=== PATIENT | male | born 1940 | race African-American/Black ===

== ENCOUNTER 2021-07-14 07:24 | Inpatient (IN) | payer OTHER ==
[~2021-07-14] VITALS: Ht 177.8 cm; Wt 76.7 kg
[2021-07-14 08:26] LABS: BASOPHILS % 0.7 % (0.0-2.0); HEMATOCRIT. 38.6 % (42.0-52.0); HEMOGLOBIN. 13.1 g/dL (14.0-18.0); LYMPHOCYTES % 18.3 % (20.0-50.0); MEAN CORPUSCULAR HEMOGLOBIN 30.1 pg (28.0-32.0); MEAN CORPUSCULAR VOLUME 89.2 fL (80.0-94.0); MEAN PLATELET VOLUME 7.4 fl (7.4-10.4); MONOCYTES % 11.1 % (2.0-8.0); NEUTROPHILS % 67.9 % (40.0-76.0); PLATELET 247 x1000/uL (130-400); RED BLOOD CELL COUNT 4.33 mill/uL (4.7-6.1); RED CELL DISTRIBUTION WIDTH 13.4 % (11.6-14.6)
[2021-07-14 08:33] LABS: CHLORIDE 107 mEq/L (98-107)
[2021-07-14 08:59] LABS: INR 1.1; PROTHROMBIN TIME 11.7 sec (9.6-11.0)
[2021-07-14] MEDS ORDERED: GADOTERATE MEGLUMINE 5 MMOL/10 ML VIAL IV ONE (15:19)
[2021-07-14] MEDS ORDERED: ONDANSETRON HCL 4MG/2ML INJ IV PRN (19:45)
[2021-07-14 20:30] VITALS: BP 170/106
[2021-07-14] MEDS ORDERED: MORPHINE SULFATE 2 MG/ML CPJ (NOT FOR IM USE) IV PRN (21:30)
[2021-07-14] MEDS ORDERED: NICARDIPINE 40MG/200ML PREMIX 200 ML IV PRN (21:30)
[2021-07-14] MEDS: LEVETIRACETAM 500MG PREMIX 100 ML IV SCH (22:00)
[2021-07-14] MEDS: SODIUM CHLORIDE 0.9% INJ 3ML FLUSH IVF SCH (22:00)
[2021-07-14] MEDS: DEXT 5%/LACTATED RINGERS 1,000 ML IV SCH (22:00)
[2021-07-14] MEDS ORDERED: NICARDIPINE 50 MG in SODIUM CHLORIDE 0.9% 250 ML IV PRN (22:30)
[2021-07-14] MEDS ORDERED: NALOXONE HCL 0.4 MG/ML 1ML VIAL IV PRN (23:45)
[2021-07-15] VITALS (65 sets, daily range): BP systolic 49–165; BP diastolic 31–116
[2021-07-15] MEDS: NICARDIPINE 100 MG in SODIUM CHLORIDE 0.9% 60 ML IV PRN ×2 (02:51→07:12)
[2021-07-15] MEDS: SODIUM CHLORIDE 0.9% INJ 3ML FLUSH IVF SCH ×3 (06:39→22:00)
[2021-07-15] MEDS ORDERED: GENTAMICIN SULF 40MG/ML 2ML VIAL ONE (07:14)
[2021-07-15] MEDS ORDERED: LIDOCAINE HCL/EPINEPHRINE 1%-EPI 1:100,000 20 ML VIAL ONE (07:14)
[2021-07-15] MEDS ORDERED: BACITRACIN 15GM TUBE TOP ONE (07:14)
[2021-07-15] MEDS ORDERED: THROMBIN (BOVINE) 5000 UNITS/VIAL TOP ONE (07:15)
[2021-07-15] MEDS ORDERED: FENTANYL CITRATE/PF 50MCG/ML 2ML VIAL ONE (08:05)
[2021-07-15] MEDS ORDERED: PROPOFOL 200MG/20ML VIAL IV ONE (08:06)
[2021-07-15] MEDS ORDERED: GLYCOPYRROLATE 0.2 MG/ML 2ML VIAL ONE (08:06)
[2021-07-15] MEDS ORDERED: ROCURONIUM BROMIDE 10MG/ML VIAL 5ML IV ONE (08:06)
[2021-07-15] MEDS ORDERED: MIDAZOLAM HCL 2 MG/2 ML VIAL ONE (08:06)
[2021-07-15] MEDS ORDERED: NEOSTIGMINE METHYLSULFATE 1MG/ML 10 ML VIAL ONE (08:06)
[2021-07-15] MEDS ORDERED: DEXAMETHASONE 4MG/ML 1ML VIAL ONE (08:22)
[2021-07-15] MEDS ORDERED: ONDANSETRON HCL 4MG/2ML INJ ONE (08:22)
[2021-07-15] MEDS: PANTOPRAZOLE SODIUM 40 MG/VIAL IV SCH (09:42)
[2021-07-15] MEDS: LEVETIRACETAM 500MG PREMIX 100 ML IV SCH ×2 (09:42→20:02)
[2021-07-15] MEDS: MORPHINE SULFATE 2 MG/ML CPJ (NOT FOR IM USE) IV PRN ×3 (10:19→23:08)
[2021-07-15] MEDS: CEFAZOLIN 1000MG PREMIX 50 ML IV SCH ×2 (13:41→21:21)
[2021-07-15] MEDS ORDERED: CEFAZOLIN SODIUM 1000MG/VIAL IV SCH (14:00)
[2021-07-15] MEDS: DEXT 5%/LACTATED RINGERS 1,000 ML IV SCH (14:54)
[2021-07-16] VITALS (97 sets, daily range): BP systolic 97–168; BP diastolic 33–118
[2021-07-16] MEDS: DEXT 5%/LACTATED RINGERS 1,000 ML IV SCH
[2021-07-16] MEDS: SODIUM CHLORIDE 0.9% INJ 3ML FLUSH IVF SCH ×3 (05:28→21:43)
[2021-07-16] MEDS: CEFAZOLIN 1000MG PREMIX 50 ML IV SCH ×3 (05:39→21:38)
[2021-07-16] MEDS: PANTOPRAZOLE SODIUM 40 MG/VIAL IV SCH (09:01)
[2021-07-16] MEDS: LEVETIRACETAM 500MG PREMIX 100 ML IV SCH ×2 (09:01→21:37)
[2021-07-16] MEDS: NICARDIPINE 100 MG in SODIUM CHLORIDE 0.9% 60 ML IV PRN (09:06)
[2021-07-16] MEDS: MORPHINE SULFATE 2 MG/ML CPJ (NOT FOR IM USE) IV PRN (09:18)
[2021-07-16] MEDS ORDERED: HYDRALAZINE 20MG/ML VIAL IV PRN (11:30)
[2021-07-16] MEDS ORDERED: BACITRACIN ZINC OINT UDPKT TOP NR (15:30)
[2021-07-16] MEDS: AMLODIPINE 5MG TABLET PO SCH (21:00)
[2021-07-17] VITALS (97 sets, daily range): BP systolic 98–145; BP diastolic 46–89
[2021-07-17] MEDS: NICARDIPINE 100 MG in SODIUM CHLORIDE 0.9% 60 ML IV PRN (04:49)
[2021-07-17] MEDS: CEFAZOLIN 1000MG PREMIX 50 ML IV SCH (06:10)
[2021-07-17] MEDS: SODIUM CHLORIDE 0.9% INJ 3ML FLUSH IVF SCH ×3 (06:10→22:05)
[2021-07-17 06:15] LABS: BASOPHILS % 0.2 % (0.0-2.0); HEMATOCRIT. 38.2 % (42.0-52.0); HEMOGLOBIN. 13.3 g/dL (14.0-18.0); LYMPHOCYTES % 8.3 % (20.0-50.0); MEAN CORPUSCULAR HEMOGLOBIN 30.7 pg (28.0-32.0); MEAN CORPUSCULAR VOLUME 88.1 fL (80.0-94.0); MEAN PLATELET VOLUME 7.2 fl (7.4-10.4); MONOCYTES % 10.6 % (2.0-8.0); NEUTROPHILS % 80.9 % (40.0-76.0); PLATELET 249 x1000/uL (130-400); RED BLOOD CELL COUNT 4.34 mill/uL (4.7-6.1); RED CELL DISTRIBUTION WIDTH 13.7 % (11.6-14.6)
[2021-07-17 06:38] LABS: CHLORIDE 110 mEq/L (98-107)
[2021-07-17] MEDS: AMLODIPINE 5MG TABLET PO SCH ×2 (09:00→22:05)
[2021-07-17] MEDS: PANTOPRAZOLE SODIUM 40 MG/VIAL IV SCH (09:13)
[2021-07-17] MEDS: LEVETIRACETAM 500MG PREMIX 100 ML IV SCH ×2 (09:13→22:05)
[2021-07-17] MEDS ORDERED: ASPI-1497 MT (12:14)
[2021-07-17] MEDS ORDERED: CARB-299 PO (12:14)
[2021-07-17] MEDS ORDERED: CRES10 MT (12:14)
[2021-07-17] MEDS ORDERED: CLOP-31 PO (12:14)
[2021-07-17] MEDS ORDERED: AMLO5TAB88 PO (12:14)
[2021-07-17] MEDS ORDERED: POTASSIUM CHLORIDE INJ 40 MEQ in DEXT 5% WATER 250 ML IV ONE (12:15)
[2021-07-17] MEDS: DEXT 5%/LACTATED RINGERS 1,000 ML IV SCH ×3 (13:53→16:40)
[2021-07-17] MEDS: KCL 20MEQ/100ML PREMIX 100 ML IV SCH ×2 (13:53→19:16)
[2021-07-17] MEDS ORDERED: BACITRACIN 15GM TUBE TOP NR (15:30)
[2021-07-18] VITALS (96 sets, daily range): BP systolic 70–174; BP diastolic 43–150
[2021-07-18] MEDS: SODIUM CHLORIDE 0.9% INJ 3ML FLUSH IVF SCH ×3 (05:22→20:41)
[2021-07-18] MEDS: DEXT 5%/LACTATED RINGERS 1,000 ML IV SCH (06:00)
[2021-07-18 06:13] LABS: BASOPHILS % 0.2 % (0.0-2.0); EOSINOPHILS % 0.6 % (0.0-5.0); HEMATOCRIT. 35.9 % (42.0-52.0); HEMOGLOBIN. 12.4 g/dL (14.0-18.0); LYMPHOCYTES % 13.9 % (20.0-50.0); MEAN CORPUSCULAR HEMOGLOBIN 30.6 pg (28.0-32.0); MEAN CORPUSCULAR VOLUME 88.7 fL (80.0-94.0); MEAN PLATELET VOLUME 7.3 fl (7.4-10.4); MONOCYTES % 11.8 % (2.0-8.0); NEUTROPHILS % 73.5 % (40.0-76.0); PLATELET 236 x1000/uL (130-400); RED BLOOD CELL COUNT 4.05 mill/uL (4.7-6.1); RED CELL DISTRIBUTION WIDTH 13.7 % (11.6-14.6)
[2021-07-18 06:17] LABS: CHLORIDE 112 mEq/L (98-107)
[2021-07-18] MEDS: PANTOPRAZOLE SODIUM 40 MG/VIAL IV SCH (08:23)
[2021-07-18] MEDS: LEVETIRACETAM 500MG PREMIX 100 ML IV SCH ×2 (08:23→20:41)
[2021-07-18] MEDS: AMLODIPINE 5MG TABLET PO SCH ×2 (08:23→20:41)
[2021-07-18] MEDS: ACETAMINOPHEN 650MG/20.3ML UDC PO PRN (23:23)
[2021-07-18] MEDS ORDERED: NALOXONE HCL 0.4MG/ML VIAL IV PRN (23:30)
[2021-07-19] VITALS (30 sets, daily range): BP systolic 97–135; BP diastolic 51–84
[2021-07-19] MEDS: DEXT 5%/LACTATED RINGERS 1,000 ML IV SCH (00:30)
[2021-07-19] MEDS: SODIUM CHLORIDE 0.9% INJ 3ML FLUSH IVF SCH ×3 (06:50→22:00)
[2021-07-19] MEDS: PANTOPRAZOLE SODIUM 40 MG/VIAL IV SCH (08:17)
[2021-07-19] MEDS: AMLODIPINE 5MG TABLET PO SCH ×2 (08:17→20:10)
[2021-07-19] MEDS: LEVETIRACETAM 500MG PREMIX 100 ML IV SCH ×2 (08:18→20:08)
[2021-07-19] MEDS ORDERED: HYDRALAZINE 5 MG in SODIUM CHLORIDE 0.9% 49.5 ML IV PRN (10:00)
[2021-07-19] MEDS: ACETAMINOPHEN 650MG/20.3ML UDC PO PRN (16:33)
[2021-07-20] VITALS: BP 141/73
[2021-07-20 04:00] VITALS: BP 136/77
[2021-07-20] MEDS: SODIUM CHLORIDE 0.9% INJ 3ML FLUSH IVF SCH ×3 (06:19→21:08)
[2021-07-20 08:00] VITALS: BP 98/74
[2021-07-20] MEDS: LEVETIRACETAM 500MG PREMIX 100 ML IV SCH ×2 (09:00→21:08)
[2021-07-20] MEDS: AMLODIPINE 5MG TABLET PO SCH ×2 (09:00→21:07)
[2021-07-20] MEDS: PANTOPRAZOLE SODIUM 40 MG/VIAL IV SCH (09:53)
[2021-07-20 12:00] VITALS: BP 116/77
[2021-07-20 16:00] VITALS: BP 124/88
[2021-07-20 20:00] VITALS: BP 113/78
[2021-07-21] VITALS: BP 121/62
[2021-07-21 04:00] VITALS: BP 122/72
[2021-07-21] MEDS: SODIUM CHLORIDE 0.9% INJ 3ML FLUSH IVF SCH ×3 (05:44→21:19)
[2021-07-21 08:00] VITALS: BP 131/62
[2021-07-21] MEDS: LEVETIRACETAM 500MG PREMIX 100 ML IV SCH ×2 (09:56→21:18)
[2021-07-21] MEDS: PANTOPRAZOLE SODIUM 40 MG/VIAL IV SCH (09:56)
[2021-07-21] MEDS: AMLODIPINE 5MG TABLET PO SCH ×2 (09:56→21:26)
[2021-07-21 12:00] VITALS: BP 133/68
[2021-07-21 16:00] VITALS: BP 121/77
[2021-07-21 20:00] VITALS: BP 132/73
[2021-07-22] VITALS (20 sets, daily range): BP systolic 101–145; BP diastolic 49–88
[2021-07-22] MEDS: SODIUM CHLORIDE 0.9% INJ 3ML FLUSH IVF SCH ×3 (06:12→21:09)
[2021-07-22] MEDS: PANTOPRAZOLE SODIUM 40 MG/VIAL IV SCH (09:49)
[2021-07-22] MEDS: LEVETIRACETAM 500MG PREMIX 100 ML IV SCH ×2 (09:49→21:03)
[2021-07-22] MEDS: AMLODIPINE 5MG TABLET PO SCH ×2 (09:50→21:09)
[2021-07-22] MEDS ORDERED: MANNITOL 12.5G (25%) VIAL 50ML IV ONE (18:45)
[2021-07-22] MEDS ORDERED: MANNITOL 20% 100 ML IV NR (19:00)
[2021-07-22] MEDS ORDERED: HYDRALAZINE 20MG/ML VIAL IV PRN (20:00)
[2021-07-22] MEDS ORDERED: NICARDIPINE 100 MG in SODIUM CHLORIDE 0.9% 60 ML IV PRN (20:30)
[2021-07-22] MEDS: DEXT 5%/LACTATED RINGERS 1,000 ML IV SCH (20:41)
[2021-07-23] VITALS (91 sets, daily range): BP systolic 105–153; BP diastolic 52–81
[2021-07-23] MEDS: SODIUM CHLORIDE 0.9% INJ 3ML FLUSH IVF SCH ×3 (05:30→22:00)
[2021-07-23] MEDS ORDERED: LIDOCAINE HCL/EPINEPHRINE 1%-EPI 1:100,000 20 ML VIAL ONE (06:59)
[2021-07-23] MEDS ORDERED: BACITRACIN 15GM TUBE TOP ONE (07:00)
[2021-07-23] MEDS ORDERED: THROMBIN (BOVINE) 5000 UNITS/VIAL TOP ONE (07:00)
[2021-07-23] MEDS ORDERED: GENTAMICIN SULF 40MG/ML 2ML VIAL ONE (07:00)
[2021-07-23] MEDS ORDERED: GLYCOPYRROLATE 0.2 MG/ML 2ML VIAL ONE (07:54)
[2021-07-23] MEDS ORDERED: CEFAZOLIN SODIUM 1000MG/VIAL ONE (08:05)
[2021-07-23] MEDS ORDERED: CALCIUM CHLORIDE 1GM/10ML SYR IV ONE ×2 (08:14→08:49)
[2021-07-23] MEDS: AMLODIPINE 5MG TABLET PO SCH ×2 (09:00→20:12)
[2021-07-23] MEDS ORDERED: HYDRALAZINE 20MG/ML VIAL ONE (09:05)
[2021-07-23] MEDS: LEVETIRACETAM 500MG PREMIX 100 ML IV SCH ×2 (09:40→21:57)
[2021-07-23] MEDS: DEXT 5%/LACTATED RINGERS 1,000 ML IV SCH (09:42)
[2021-07-23] MEDS: PANTOPRAZOLE SODIUM 40 MG/VIAL IV SCH (09:44)
[2021-07-23] MEDS ORDERED: MORPHINE SULFATE 2 MG/ML CPJ (NOT FOR IM USE) IV PRN (10:30)
[2021-07-23] MEDS ORDERED: NALOXONE HCL 0.4MG/ML VIAL IV PRN (10:30)
[2021-07-23] MEDS: CEFAZOLIN 1000MG PREMIX 50 ML IV SCH ×2 (12:59→21:57)
[2021-07-23] MEDS ORDERED: CEFAZOLIN SODIUM 1000MG/VIAL IV SCH (14:00)
[2021-07-23] MEDS: PHENYTOIN SODIUM 500 MG in SODIUM CHLORIDE 0.9% 50 ML IV NR ×2 (17:11→17:16)
[2021-07-23 17:16] LABS: BG CARBOXYHEMOGLOBIN 0.3 % (0.5-1.5); BG DEOXYHEMOGLOBIN 3.4 % (0.0-5.0); BG FRACTION INSPIRED OXYGEN 21; BG HCO3 ACT 27.6 mmol/L (22.0-26.0); BG METHEMOGLOBIN 0.3 % (0.0-1.5); BG OXYGEN SATURATION 96.6 % (92.0-98.5); BG PCO2 42.6 mmHg (35.0-45.0); BG PO2 86.2 mmHg (75.0-100.0); BG SAMPLE SITE RIGHT BRACHIAL; BG VENT MODE ROOM AIR
[2021-07-23 17:46] LABS: HEMATOCRIT. 38.2 % (42.0-52.0); HEMOGLOBIN. 12.6 g/dL (14.0-18.0); MEAN CORPUSCULAR HEMOGLOBIN 29.8 pg (28.0-32.0); MEAN CORPUSCULAR VOLUME 90.2 fL (80.0-94.0); MEAN PLATELET VOLUME 7.2 fl (7.4-10.4); PLATELET 328 x1000/uL (130-400); RED BLOOD CELL COUNT 4.24 mill/uL (4.7-6.1); RED CELL DISTRIBUTION WIDTH 13.7 % (11.6-14.6)
[2021-07-23 18:11] LABS: PLATELET ESTIMATE NORMAL
[2021-07-23 18:12] LABS: CHLORIDE 109 mEq/L (98-107)
[2021-07-23] MEDS: PHENYTOIN SODIUM 100MG/2ML VIAL IV SCH (21:57)
[2021-07-24] VITALS (92 sets, daily range): BP systolic 105–136; BP diastolic 52–84
[2021-07-24] MEDS: SODIUM CHLORIDE 0.9% INJ 3ML FLUSH IVF SCH (06:00)
[2021-07-24 06:26] LABS: HEMATOCRIT. 34.9 % (42.0-52.0); HEMOGLOBIN. 11.9 g/dL (14.0-18.0); MEAN CORPUSCULAR HEMOGLOBIN 30.3 pg (28.0-32.0); MEAN CORPUSCULAR VOLUME 88.8 fL (80.0-94.0); MEAN PLATELET VOLUME 7.2 fl (7.4-10.4); PLATELET 300 x1000/uL (130-400); RED BLOOD CELL COUNT 3.93 mill/uL (4.7-6.1); RED CELL DISTRIBUTION WIDTH 13.8 % (11.6-14.6)
[2021-07-24 06:34] LABS: CHLORIDE 112 mEq/L (98-107)
[2021-07-24] MEDS: CEFAZOLIN 1000MG PREMIX 50 ML IV SCH ×3 (07:34→21:48)
[2021-07-24] MEDS: PHENYTOIN SODIUM 100MG/2ML VIAL IV SCH ×3 (07:34→21:48)
[2021-07-24] MEDS: DEXT 5%/LACTATED RINGERS 1,000 ML IV SCH (07:35)
[2021-07-24] MEDS: PANTOPRAZOLE SODIUM 40 MG/VIAL IV SCH (08:36)
[2021-07-24] MEDS: AMLODIPINE 5MG TABLET PO SCH ×3 (08:36→20:39)
[2021-07-24] MEDS: LEVETIRACETAM 500MG PREMIX 100 ML IV SCH ×2 (08:36→20:51)
[2021-07-24] MEDS: KCL 20MEQ/100ML PREMIX 100 ML IV SCH ×2 (15:15→17:33)
[2021-07-24 16:04] LABS: PLATELET ESTIMATE NORMAL
[2021-07-25] VITALS (37 sets, daily range): BP systolic 88–150; BP diastolic 50–91
[2021-07-25] MEDS ORDERED: ACETAMINOPHEN 650MG SUPP PR PRN (04:45)
[2021-07-25] MEDS: CEFAZOLIN 1000MG PREMIX 50 ML IV SCH (05:19)
[2021-07-25] MEDS: PHENYTOIN SODIUM 100MG/2ML VIAL IV SCH (05:20)
[2021-07-25] MEDS: DEXT 5%/LACTATED RINGERS 1,000 ML IV SCH (05:21)
[2021-07-25] MEDS ORDERED: IPRATROPIUM/ALBUTEROL 0.5-3(2.5)MG/3ML NEB HHN SCH ×2 (06:45→08:00)
[2021-07-25 07:07] LABS: HEMATOCRIT. 35.3 % (42.0-52.0); HEMOGLOBIN. 11.9 g/dL (14.0-18.0); MEAN CORPUSCULAR HEMOGLOBIN 30.4 pg (28.0-32.0); MEAN CORPUSCULAR VOLUME 89.8 fL (80.0-94.0); MEAN PLATELET VOLUME 7.3 fl (7.4-10.4); PLATELET 332 x1000/uL (130-400); RED BLOOD CELL COUNT 3.93 mill/uL (4.7-6.1); RED CELL DISTRIBUTION WIDTH 13.7 % (11.6-14.6)
[2021-07-25 07:13] LABS: CHLORIDE 116 mEq/L (98-107)
[2021-07-25] MEDS: LEVETIRACETAM 500MG PREMIX 100 ML IV SCH (08:25)
[2021-07-25] MEDS: AMLODIPINE 5MG TABLET PO SCH (08:25)
[2021-07-25] MEDS: PANTOPRAZOLE SODIUM 40 MG/VIAL IV SCH (08:25)
[2021-07-25] MEDS: MORPHINE SULFATE 2 MG/ML CPJ (NOT FOR IM USE) IV PRN ×3 (11:29→20:01)
[2021-07-25 16:27] LABS: PLATELET ESTIMATE NORMAL
[2021-07-26] VITALS: BP 134/40
[2021-07-26 04:00] VITALS: BP 120/59
[2021-07-26] MEDS: MORPHINE SULFATE 2 MG/ML CPJ (NOT FOR IM USE) IV PRN ×2 (06:11)
[2021-07-26 08:00] VITALS: BP 122/53
[2021-07-26 12:00] VITALS: BP 142/67
[2021-07-26 16:00] VITALS: BP 104/68
[2021-07-26 20:00] VITALS: BP 137/59
[2021-07-26] MEDS ORDERED: NALOXONE HCL 0.4MG/ML VIAL IV PRN (21:45)
[2021-07-27] VITALS: BP 120/61
== END 2021-07-27 04:00 | DRG 23 ==
LOC: ER 08:23 → MICUSO 10:04 → ENRESERV 18:46 → 6EST 07-19 09:46 → MICUSO 07-22 19:52 → 6EST 07-25 20:49
PROVIDERS: ADMIT Internal Medicine; ATTEND Internal Medicine
PROC: 00N00ZZ Release Brain, Open Approach (ICD-10-PCS; principal; 2021-07-15)
PROC: 00C40ZZ Extirpation of Matter from Intracranial Subdural Space, Open Approach (ICD-10-PCS; 2021-07-15)
PROC: 00U207Z Supplement Dura Mater with Autologous Tissue Substitute, Open Approach (ICD-10-PCS; 2021-07-15)
PROC: 00H632Z Insertion of Monitoring Device into Cerebral Ventricle, Percutaneous Approach (ICD-10-PCS; 2021-07-15)
PROC: 4A103BD Monitoring of Intracranial Pressure, Percutaneous Approach (ICD-10-PCS; 2021-07-15)
PROC: 00C70ZZ Extirpation of Matter from Cerebral Hemisphere, Open Approach (ICD-10-PCS; 2021-07-23)
DX: I63.9 Cerebral infarction, unspecified (principal); I62.01 Nontraumatic acute subdural hemorrhage; I62.03 Nontraumatic chronic subdural hemorrhage; I61.5 Nontraumatic intracerebral hemorrhage, intraventricular; G93.40 Encephalopathy, unspecified; I69.354 Hemiplegia and hemiparesis following cerebral infarction affecting left non-dominant side; I10 Essential (primary) hypertension; Z20.822 Contact with and (suspected) exposure to COVID-19; R41.89 Other symptoms and signs involving cognitive functions and awareness; G20 Parkinson's disease; Z66 Do not resuscitate; G93.89 Other specified disorders of brain; Z51.5 Encounter for palliative care
CPT/HCPCS: 36415; 36600; 70553; 71045; 80048; 80053; 82375; 82805; 82962; 83735; 84100; 85025; 86850; 86900; 87426; 88300; 88304; 92610; 93005; 94640; 97162; 97166; 97530; 99291; A6261; A9577; C1713; C1758; C1893; C9113; J0360; J0690; J1100; J1165; J1580; J1953; J2250; J2270; J2405; J2704; J2710; J3010; J3480; J3490; J7040; J7050; J7120; J7121; A4315